=== PATIENT | female | born 1995 | race Caucasian/White ===

== ENCOUNTER 2018-04-07 06:08 | Day surgery (SDC) | payer OTHER ==
[~2018-04-07 06:08] MED LIST: BACTRIM 400-801 EACH PO
== END 2018-04-07 19:50 | disposition home or self-care (01) ==
LOC: EDBD 06:08 → CIR.AMB 06:08
DX: N87.1 Moderate cervical dysplasia (principal)

== ENCOUNTER 2019-10-17 10:33 | Emergency (ER) | payer OTHER ==
[~2019-10-17] VITALS: Ht 160 cm; Wt 54.4 kg
[2019-10-17] MEDS ORDERED: OSEL75CA PO (14:46)
[2019-10-17] MEDS ORDERED: PROAIR HFA8.5 GM IH (14:46)
== END 2019-10-17 14:58 | disposition home or self-care (01) ==
LOC: ER 10:33
DX: B34.9 Viral infection, unspecified (principal); J11.1 Influenza due to unidentified influenza virus with other respiratory manifestations